=== PATIENT | female | born 1950 | race Hispanic/Latino ===

== ENCOUNTER 2022-10-05 17:49 | Emergency (ER) | payer MEDICARE, OTHER ==
[~2022-10-05] VITALS: Ht 162.6 cm; Wt 63.0 kg
[2022-10-05] MEDS ORDERED: HYDROCODONE/APAP 5MG-325MG TAB PO ONE (18:00)
[2022-10-05] MEDS ORDERED: HYDROCODONE/APAP 7.5MG-325MG 1 EA TAB PO PRN (18:00)
[2022-10-05] MEDS ORDERED: HYDROCODON-ACE1 EA12 PO (19:04)
== END 2022-10-05 19:23 | disposition home or self-care (01) ==
LOC: ER 18:04
DX: S52.591A Other fractures of lower end of right radius, initial encounter for closed fracture (principal); W01.0XXA Fall on same level from slipping, tripping and stumbling without subsequent striking against object, initial encounter; Y93.01 Activity, walking, marching and hiking; Y92.89 Other specified places as the place of occurrence of the external cause
CPT/HCPCS: 99284